=== PATIENT | female | born 1975 | race Caucasian/White ===

== ENCOUNTER 2016-07-10 13:56 | Emergency (ER) | payer OTHER ==
--- NOTE | ~2016-07-10 | CR94 ---
[facility]. [facility] A Service [facility] RADIOLOGY TEXT RESULTS PATIENT: AURA US LOCATION: SED : 79 UNIT #: [id number] AGE: [address]: Arielle Cox APRN SEX: F ORDER DR: [id number] [place] [id number] E MR#: [id number] Acc #: [id number] NAME: AURA US : 1975 SEX: F STUDY DATE/TIME: 07/10/2016 14:20 UNIT: SED ROOM: STUDY DESCRIPTION: CR Elbow Min 3 Views Rt Attending Physician: Arielle Cox A.P.R.N. Ordering Physician: Arielle Wright A.P.R.N. Primary Care Physician: Yannick Wahl M.D. MEDICAL IMAGING REPORT This report is preliminary unless electronic signature is present. EXAM Right elbow, 3 views COMPARISON Radiographs of the right forearm dated 05/03/2013. INDICATION 32-year-old female with pain and locking sensation of the right elbow for 2 weeks. FINDINGS There is no elbow effusion. No radiopaque foreign body or subcutaneous gas. Bones are anatomically aligned. No evidence of degenerative change, acute fracture or osseous erosion. IMPRESSION Normal exam. Dictated by... John Christianson M.D. THIS IS AN ELECTRONICALLY VERIFIED REPORT John Christianson M.D. at 07/13/2016 2:53 PM GLADYS/anitra TD: 07/10/2016 17:22 JOB #: [id number] MEDICAL IMAGING REPORT [facility]. [facility] A Service [facility] RADIOLOGY TEXT RESULTS PATIENT: AURA US LOCATION: SED : 79 UNIT #: [id number] AGE: [address]: Arielle Cox APRN SEX: F ORDER DR: Page 1 of 1
[~2016-07-10 13:56] MED LIST: ACETAMINOPHEN PO; EUCERIN CREME60 GM TOP; LORTAB 7.5-5001 TAB PO; NEURONTIN PO; NO MEDICATIONS; VOLTAREN75 MG PO; WESTCORT15 GM TOP
== END 2016-07-10 15:44 | disposition home or self-care (01) ==
LOC: SED 13:56
DX: M77.11 Lateral epicondylitis, right elbow (principal); Z90.49 Acquired absence of other specified parts of digestive tract; F17.210 Nicotine dependence, cigarettes, uncomplicated
CPT/HCPCS: 73080; 99283

== ENCOUNTER 2016-11-15 08:33 | Emergency (ER) | payer OTHER ==
[2016-11-15 09:12] LABS: URINE SOURCE CLEAN CATCH
[2016-11-15 09:15] LABS: BASOPHIL% 0.5 % (0-2.5); EOSINOPHIL# 0.1 X10e3 (0-0.7); EOSINOPHIL% 0.7 % (0.0-7.0); HEMOGLOBIN 14.7 gm/dL (12.0-16.0); LYMPHOCYTE# 2.5 X10e3 (1.0-3.5); LYMPHOCYTE% 31.2 % (17.0-45.0); MEAN CELL VOLUME 92.2 FL (83-96); MEAN CORPUSCULAR HEMOGLOBIN 31.6 PG (28-34); MEAN CORPUSCULAR HGB CONC 34.2 g/dL (30-36); MEAN PLATELET VOLUME 9.9 FL (6.5-11.5); MONOCYTE# 0.4 X10e3 (0-1.0); MONOCYTE% 5.3 % (3.0-12.0); NEUTROPHIL% 62.3 % (40-75); PLATELET COUNT 155 X10e3 (140-420); RED BLOOD COUNT 4.67 X10e (3.90-5.30)
[2016-11-15 09:16] LABS: DIFF IND NO
[2016-11-15 09:16] LABS: MICRO INDICATED? YES; URINE APPEARANCE CLEAR; URINE BILIRUBIN NEG (NEG); URINE BLOOD TRACE-LYSED (NEG); URINE COLOR YELLOW; URINE GLUCOSE NEG (NORM); URINE KETONE NEG (NEG); URINE LEUKOCYTE ESTERASE NEG (NEG); URINE NITRATE NEG (NEG); URINE PROTEIN NEG (NEG); URINE SPECIFIC GRAVITY >=1.030 (1.003-1.035); URINE UROBILINOGEN 0.2 MG/DL (NORM)
[2016-11-15 09:20] LABS: URINE RBC 0-2 /[HPF] (0-2); URINE WBC 0-2 /[HPF] (0-5)
[2016-11-15 09:21] LABS: CULTURE INDICATED? YES; URINE BACTERIA 1+ (NEG); URINE MUCUS PRESENT; URINE SQUAMOUS EPITHELIAL CELL FEW /[HPF]
[2016-11-15 09:29] LABS: ALBUMIN SERUM 4.3 g/dL (3.5-5.0); BILIRUBIN, DIRECT 0.1 mg/dL (0.0-0.2); BILIRUBIN,INDIRECT 0.3 mg/dL (0.0-0.9); BILIRUBIN,TOTAL 0.4 mg/dL (0.2-2.0); BUN/CREATININE RATIO 12.22; CALCIUM SERUM 8.7 mg/dL (8.4-10.2); CREATININE SERUM 0.9 mg/dL (0.6-1.4); GLOM FILT RATE Estimated 80.6 mL/min (>60); POTASSIUM 3.5 mmol/L (3.5-5.1); PROTEIN TOTAL SERUM 7.5 g/dL (6.0-8.3)
== END 2016-11-15 10:40 | disposition home or self-care (01) ==
LOC: SED 08:33
PROVIDERS: Emergency Medicine
DX: K52.9 Noninfective gastroenteritis and colitis, unspecified (principal); F17.210 Nicotine dependence, cigarettes, uncomplicated
CPT/HCPCS: 36415; 80048; 80076; 81003; 82150; 83690; 84703; 85025; 87086; 96361; 96374; 96375; 99284; J2405